=== PATIENT | female | born 1990 | race American Indian/Alaskan Native ===

== ENCOUNTER 2017-11-12 13:18 | Outpatient (CLI) | payer OTHER ==
[2017-11-12 14:45] LABS: Amphetamine Screen,Urine PRESUMPTIVE NEGATIVE; Benzodiazepines Screen,Urine PRESUMPTIVE NEGATIVE; Cannabinoid Screen,Urine PRESUMPTIVE NEGATIVE; Cocaine Screen,Urine PRESUMPTIVE NEGATIVE; Methadone Screen,Urine PRESUMPTIVE NEGATIVE; Opiate Screen,Urine PRESUMPTIVE NEGATIVE
[2017-11-12 14:47] LABS: Bilirubin,Urine NEG (Negative); Blood,Urine NEG (Negative); Color,Urine Yellow (Yellow); Mucus,Urine 3+ /HPF; Urobilinogen,Urine < 2.0 mg/dL (<2.0)
[2017-11-12 15:42] VITALS: BP 121/68
== END 2017-11-12 16:06 | disposition home or self-care (01) ==
LOC: TRG 13:18
PROVIDERS: ATTEND Obstetrics & Gynecology
DX: O47.02 False labor before 37 completed weeks of gestation, second trimester (principal); Z3A.28 28 weeks gestation of pregnancy; Z91.018 Allergy to other foods
CPT/HCPCS: 80307; 81001

== ENCOUNTER 2017-11-29 14:24 | Outpatient (CLI) | payer MEDICAID ==
[2017-11-29 14:47] VITALS: BP 105/63
[2017-11-29 17:51] LABS: Bilirubin,Urine NEG (Negative); Blood,Urine NEG (Negative); Calcium Oxalate Crystals,Urine 2+; Color,Urine Amber (Yellow); Mucus,Urine 3+ /HPF
[2017-11-29 17:59] LABS: Amphetamine Screen,Urine PRESUMPTIVE NEGATIVE; Benzodiazepines Screen,Urine PRESUMPTIVE NEGATIVE; Cannabinoid Screen,Urine PRESUMPTIVE NEGATIVE; Cocaine Screen,Urine PRESUMPTIVE NEGATIVE; Methadone Screen,Urine PRESUMPTIVE NEGATIVE; Opiate Screen,Urine PRESUMPTIVE NEGATIVE
[2017-11-29] MEDS ORDERED: LACTATED RINGERS 500 ML IV ONE (18:00)
--- NOTE | 2017-11-29 20:20 | Ultrasound Report ---
FINAL REPORT EXAM: US OB BPP WO NON-STRESS HISTORY: LIMITED CARE, VARIABLE DECELS, WELL BEING TECHNIQUE: Real-time sonography was performed of the gravid uterus and images are submitted for interpretation. PRIORS: None. FINDINGS: There is a normal-appearing fetus in the uterus in a cephalic presentation. The placenta is anterior and the os is clear. The amniotic fluid index is normal at 15.7 cm. The cervix is long and closed measuring 4.9 cm. The heart is beating at a rate of 158 beats per minute. Biometric measurements give an estimated gestational age of 30 weeks 4 days. structures identified include the cord insertion, posterior fossa, four-chamber heart, spine, bladder, kidneys, bladder, diaphragm and stomach. Estimated weight: 1537 grams or 3 pound and 7 ounces. Biophysical profile: Breathin Movement: 2 Tone: 2 Fluid volume: 2 IMPRESSION: 1. Single, live intrauterine gestation, estimated gestational age 30 weeks 4 days for an estimated date of confinement of 02/03/2018. 2. Normal biophysical profile, 11/10
--- NOTE | 2017-11-29 20:22 | Ultrasound Report ---
FINAL REPORT EXAM: US OB > = 14 WEEKS FETUS HISTORY: LIMITED CARE, VARIABLE DECELS, WELL BEING TECHNIQUE: Real-time sonography was performed of the gravid uterus and images are submitted for interpretation. PRIORS: None. FINDINGS: There is a normal-appearing fetus in the uterus in a cephalic presentation. The placenta is anterior and the os is clear. The amniotic fluid index is normal at 15.7 cm. The cervix is long and closed measuring 4.9 cm. The heart is beating at a rate of 158 beats per minute. Biometric measurements give an estimated gestational age of 30 weeks 4 days. structures identified include the cord insertion, posterior fossa, four-chamber heart, spine, bladder, kidneys, bladder, diaphragm and stomach. Estimated weight: 1537 grams or 3 pound and 7 ounces. Biophysical profile: Breathin Movement: 2 Tone: 2 Fluid volume: 2 IMPRESSION: 1. Single, live intrauterine gestation, estimated gestational age 30 weeks 4 days for an estimated date of confinement of 02/03/2018. 2. Normal biophysical profile, 11/10
== END 2017-11-29 19:30 | disposition home or self-care (01) ==
LOC: TRG 14:24
PROVIDERS: ATTEND Obstetrics & Gynecology
DX: O47.03 False labor before 37 completed weeks of gestation, third trimester (principal)
CPT/HCPCS: 59025; 76805; 76819; 80307; 81001

== ENCOUNTER 2017-12-07 10:06 | Outpatient (CLI) | payer MEDICAID ==
[2017-12-07 10:20] VITALS: BP 107/55
[2017-12-07] MEDS ORDERED: LACTATED RINGERS 500 ML IV ONE (10:25)
[2017-12-07] MEDS ORDERED: BRETHINE SUB-Q NR (10:56)
[2017-12-07 12:26] LABS: Bilirubin,Urine NEG (Negative); Blood,Urine NEG (Negative); Color,Urine Amber (Yellow); Mucus,Urine 3+ /HPF; Protein,Urine <15 mg/dL mg/dL (Negative)
== END 2017-12-07 13:02 | disposition home or self-care (01) ==
LOC: TRG 10:06
PROVIDERS: ATTEND Obstetrics & Gynecology
DX: O47.03 False labor before 37 completed weeks of gestation, third trimester (principal); Z3A.32 32 weeks gestation of pregnancy; Z91.018 Allergy to other foods
CPT/HCPCS: 36415; 81001; 82731; J3105; J7120

== ENCOUNTER 2017-12-17 20:40 | Outpatient (CLI) | payer MEDICAID ==
[2017-12-17] MEDS ORDERED: LACTATED RINGERS 1,000 ML ONE (20:59)
[2017-12-17] MEDS ORDERED: LACTATED RINGERS 1,000 ML IV ONE (21:18)
[2017-12-17] MEDS ORDERED: PROCARDIA*For Tocolysis only PO ONE (22:50)
[2017-12-17 23:17] LABS: Bilirubin,Urine NEG (Negative); Blood,Urine NEG (Negative); Color,Urine Yellow (Yellow); Mucus,Urine 2+ /HPF
[2017-12-17 23:23] VITALS: BP 105/64
[2017-12-17 23:23] LABS: Amphetamine Screen,Urine PRESUMPTIVE NEGATIVE; Benzodiazepines Screen,Urine PRESUMPTIVE NEGATIVE; Cannabinoid Screen,Urine PRESUMPTIVE NEGATIVE; Cocaine Screen,Urine PRESUMPTIVE NEGATIVE; Methadone Screen,Urine PRESUMPTIVE NEGATIVE; Opiate Screen,Urine PRESUMPTIVE NEGATIVE
--- NOTE | 2017-12-17 23:29 | Ultrasound Report ---
FINAL REPORT PROCEDURE: US OB LIMITED TECHNIQUE: Real-time transabdominal sonography of the uterus, placenta, amniotic fluid, and fetus was performed with image documentation. M-mode Doppler was used to document heartbeat. CPT 14311 HISTORY: MICHELET COMPARISON: No prior studies are available for comparison. FINDINGS: GENERAL: IUP: Single living intrauterine . Position: Cephalic Placental position: Anterior, without previa. Amniotic fluid volume: Normal. MICHELET 12.7 cm. Largest fluid pocket 3.9 cm FETUS: Heart rate and rhythm: 150 BPM, Regular. Mean Gestational Age (by report): 33 weeks IMPRESSION: Normal fluid volume. MICHELET 12.7 cm.
--- NOTE | 2017-12-17 23:30 | Ultrasound Report ---
FINAL REPORT PROCEDURE: US OB BPP WO NON-STRESS TECHNIQUE: Sonographic evaluation for breathing, movement, tone, and amniotic fluid volume was performed. CPT 93826 HISTORY: variable FHR deceleration COMPARISON: No prior studies are available for comparison. FINDINGS: Amniotic fluid volume: Normal-score 2. At least one vertical pocket > 2 cm or more in vertical axis. breathing: Normal-score 2. movement: Normal-score 2. tone: Normal. Score: 8 of 8. IMPRESSION: Normal biophysical profile.
--- NOTE | 2017-12-20 07:08 | Event Note ---
Date: 12/17/17 Late entry for triage visit on 12/17/17: 27 year old presents to triage complaining of vaginal discharge noted today and yesterday. EDC 01/31/18. EGA 33 weeks, 4 days gestation. Patient denies vaginal bleeding, contractions, abdominal pain, or watery discharge. She denies recent IC. She denies falls or trauma. She has no other complaints. She denies any known exposure to STIs. On exam pt. is well appearing, A&O, NAD. VSS. Abdomen soft, nontender. No regular contractions noted or palpated. Irregular contractions resolved with IV hydration. EFM tracing category 1. SSE performed. No pooling, no bleeding noted. White vaginal discharge noted. Fern test negative. Clue cells noted. Cervix closed and thick and posterior. UDS negative; UA does not indicate infection. Patient was hydrated with IV fluids and a Rx for Flagyl was called in to [facility]. Patient was instructed re: use of medication. Patient was advised to avoid IC and to follow up with [facility] this week. Patient was advised on signs and symptoms of labor and how to do daily movement counts. Warning signs discussed with patient and she was discharged in good condition.
== END 2017-12-18 00:10 | disposition home or self-care (01) ==
LOC: TRG 20:40
PROVIDERS: ATTEND Obstetrics & Gynecology
DX: O62.8 Other abnormalities of forces of labor (principal); Z3A.33 33 weeks gestation of pregnancy
CPT/HCPCS: 59025; 76815; 76819; 80307; 81001; 96360; 96361; J7120